=== PATIENT | male | born 1930 | race Caucasian/White ===

== ENCOUNTER → 2017-10-20 10:17 | Outpatient (CLI) | payer MEDICARE, OTHER ==
[2016-10-27 15:27] VITALS: BMI 25.4
[~2017-10-20 10:17] MED LIST: ASPIRIN81 MG PO; DIOVAN HCT 160/1 TAB PO; HYDROCODON-ACE1 EAC7 PO; HYDROCODONE-APA1 TAB PO; SULINDAC200 MG PO
== END | disposition home or self-care (01) ==
LOC: D.CT 10:17
DX: G45.9 Transient cerebral ischemic attack, unspecified (principal)